=== PATIENT | male | born 1945 | race Caucasian/White ===

== ENCOUNTER → 2016-10-19 13:27 | Outpatient (CLI) | payer MEDICARE, OTHER ==
[2015-09-11 12:07] VITALS: BMI 30.4
[~2016-10-19 13:27] MED LIST: ASPIRIN325 MG PO; ELIQUIS2.5 MG PO; FISH OIL 1,0001 CA1 PO; HUMALOG 30100 UNITS/ SC; HUMALOG MI100 UNITS/; INSULIN PUMP HUMALOG; LANTUS INSULIN10 ML; LOPRESSOR25 MG PO; NIACIN100 MG PO; PERCOCET 10/3251 TA1 PO; PLAVIX75 MG PO; PRINZIDE 20-251 TA1 PO; TOPROL XL25 MG PO; ZOCOR20 MG PO
== END | disposition home or self-care (01) ==
LOC: D.RT 13:27
DX: J44.9 Chronic obstructive pulmonary disease, unspecified (principal)

== ENCOUNTER 2016-11-22 13:45 | Emergency (ER) | payer MEDICARE, OTHER ==
[2015-09-11 12:07] VITALS: BMI 30.4
[2016-11-22 14:29] LABS: BASOPHILS 0.1 % (0.0-2.0); EOSINOPHILS 0.6 % (0-7); HEMATOCRIT 39.8 % (42.0-54.0); HEMOGLOBIN 13.8 g/dL (13.5-17.5); IMMATURE GRANULOCYTES 0.1 % (0-5); LYMPHOCYTES 20.1 % (15-50); MCH 30.9 pg (26.0-34.0); MCHC 34.7 g/dL (31.0-37.0); MEAN PLATELET VOLUME 11.2 fL (7.4-10.4); MONOCYTES 6.4 % (2-11); NEUTROPHILS 72.7 % (40-80); PLATELET COUNT 115 10x3/uL (130-400); RBC 4.47 10x6/uL (4.20-6.10); RDW 13.3 % (11.5-14.5); WBC 7.2 10x3/uL (4.8-10.8)
[2016-11-22 14:43] LABS: ALBUMIN 4.3 g/dL (3.4-5.0); ALKALINE PHOSPHATASE 61 U/L (46-116); ALT (SGPT) 28 U/L (10-68); BILIRUBIN - TOTAL 0.67 mg/dL (0.2-1.3); CALC OSMOLALITY 289 mosm/kg (275-300); CALCIUM 9.3 mg/dL (8.5-10.1); CARBON DIOXIDE 26.6 mmol/L (21.0-32.0); CHLORIDE - SERUM 100 mmol/L (98-107); CREATININE - SERUM 1.8 mg/dL (0.6-1.3); POTASSIUM - SERUM 4.1 mmol/L (3.5-5.1); SODIUM 138 mmol/L (136-145); UREA NITROGEN 30 mg/dL (7-18); eGFR NON AFRICAN AMERICAN 40 mL/min (90-120)
[2016-11-22 14:46] LABS: GLUCOSE 241 mg/dL (74-106)
[2016-11-22 14:47] LABS: CREATINE KINASE 77 UL (21-232)
[2016-11-22 14:48] LABS: TROPONIN-I < 0.017 ng/mL (0.000-0.060)
[2016-11-22 16:43] LABS: APPEARANCE CLOUDY (CLEAR); BILIRUBIN NEGATIVE (NEGATIVE); COLOR YELLOW (YELLOW); GLUCOSE 250 mg/dL (NEGATIVE); KETONE NEGATIVE (NEGATIVE); LEUKOCYTE ESTERASE 1+ (NEGATIVE); NITRITE NEGATIVE (NEGATIVE); PROTEIN 3+ mg/dL (NEGATIVE); SPECIFIC GRAVITY 1.015 (1.005-1.020); UROBILINOGEN NORMAL (NORMAL)
[2016-11-22 16:48] LABS: BACTERIA MANY /hpf (NONE SEEN); RED CELLS - URINE NONE SEEN /hpf (0-5); WHITE CELLS - URINE 0-5 /hpf (0-5)
== END 2016-11-22 19:00 | disposition home or self-care (01) ==
LOC: D.ER 13:45
PROVIDERS: Emergency Medicine
DX: A08.4 Viral intestinal infection, unspecified (principal); E11.65 Type 2 diabetes mellitus with hyperglycemia; Z79.4 Long term (current) use of insulin

== ENCOUNTER → 2017-05-26 13:32 | Outpatient (CLI) | payer MEDICARE, OTHER ==
[2015-09-11 12:07] VITALS: BMI 30.4
== END | disposition home or self-care (01) ==
LOC: D.US 13:32
DX: M79.605 Pain in left leg (principal); M79.604 Pain in right leg; I73.9 Peripheral vascular disease, unspecified

== ENCOUNTER → 2017-06-15 13:22 | Outpatient (CLI) | payer MEDICARE, OTHER ==
[2015-09-11 12:07] VITALS: BMI 30.4
[~2017-06-15 13:22] MED LIST changes: +GEMFIBROZIL600 MG PO
== END | disposition home or self-care (01) ==
LOC: D.CT 13:22
DX: I73.9 Peripheral vascular disease, unspecified (principal)

== ENCOUNTER 2017-06-22 19:57 | Inpatient (IN) | payer MEDICARE, OTHER ==
--- NOTE | ~2017-06-22 | HEMODYNAMI ---
PATIENT:BRUNO KENDRICK MEDICAL RECORD: [id number] : 43 LOCATION:[facility] D2117 ADMISSION DATE: 06/22/17 Generatedon:06/23/201713:24 Patient name: BRUNO KENDRICK Patient #: [id number] SSN: : Date of study: 06/23/2017 Page: Of Hemodynamic Procedure Report Patient Data Patient Demographics Procedure consent was obtained First Name: BRUNO Gender: Male Last Name: AROLDO : 1945 Middle Initial: H Age: 72 year(s) Patient #: [id number] Race: Additional ID: [id number] Contact details [address]: [address] [place] [address] State: [place] City: [place] Zip code: [address] Past Medical History History of disease Date Diagnosis Comments CAD Peripheral vascular disease->Claudication Previous NH->ST elevation NH Hypertension Diabetes Allergies Allergen Reaction Date Comments Reported Sulfa drugs 02/27/2015 Admission Admission Data Admission Date: 06/22/2017 Admission Time: 22:25 Room #: D.2117 Procedure Procedure Types Cath Procedure Diagnostic Procedure LHC LHC w/Coronaries w/Grafts Miscellaneous Procedures Moderate Sedation up to 30 minutes Procedure Description Procedure Date Procedure Date: 06/23/2017 Procedure Start Time: 12:46 Procedure End Time: 13:22 Procedure Staff Name Function Desean Richard MD Performing Physician Adrien Rice RN Nurse Saulo Snow RT Monitor Asiya Gaffney RT Scrub Procedure Data Cath Procedure Fluoroscopy Diagnostic fluoroscopy Total fluoroscopy Time: 13 time: 13 min min Diagnostic fluoroscopy Total fluoroscopy dose: dose: 1251 mGy 1251 mGy Contrast Material Contrast Material Type Amount (ml) Isovue 300 104 Entry Location Entry Primary Successful Side Size Upsize Upsize Entry Closure Succes sful Closure Location (Fr) 1 (Fr) 2 (Fr) Remarks Device Remarks Femoral Right 5 Fr Exoseal artery Estimated blood loss: 10 ml Diagnostic catheters Device Type Used For End Catheter Placement Cordis 5Fr JL 4.0 Procedure Catheter (MP) Cordis 5Fr 3DRC Catheter Procedure (MP) Diagnostic Infinity 5Fr Procedure LCB catheter Diagnostic Infinity 5Fr Procedure MPA-2 catheter Cordis 5Fr Pigtail Procedure Catheter (MP) Procedure Complications No complications Procedure Medications Medication Administration Route Dosage Oxygen NC 2 l/min Lidocaine 2% added to field 20 Heparin Flush Bag added to field 2 bags (1000units/500ml NS) 0.9% NaCl I.V. 100 ml/hr Versed I.V. 0.5 mg Fentanyl I.V. 25 mcg Versed I.V. 0.5 mg Fentanyl I.V. 25 mcg Versed I.V. 0.5 mg Fentanyl I.V. 25 mcg Versed I.V. 0.5 mg Fentanyl I.V. 25 mcg Hemodynamics Rest Heart Rate: 73 (bpm) Pressure Samples Time Site Value (mmHg) Purpose Heart Use Rate(bpm) 12:50 AO 163/60(100) Snapshot 72 13:10 LV 179/11,16 Snapshot 71 13:11 AO 167/60(105) Pullback 72 13:11 LV 180/17,19 Pullback 72 Gradients Valve Time Site 1 Site 2 Mean SEP/DFP Peak To Heart Use (mmHg) (sec/min) Peak Rate (mmHg) (bpm) Aortic 13:11 LV AO 13 22 13 72 180/17,19 167/60(105) Calculations Valve P-P Mean Valve Index Valve Source Name Gradient Area Flow (cm2) Aortic 13 13 13 13 Snapshots Pre Cath Intra NCS Post Cath Vital Signs Time Heart Resp SPO2 etCO2 NIBP (mmHg) Rhythm Pain Sedation Rate (ipm) (%) (mmHg) Status Level (bpm) 12:34:05 71 22 95 32.4 186/63(118) NSR 0 (11) 10(A) , No pain 12:39:08 72 21 100 18.1 198/69(132) NSR 0 (11) 10(A) , No pain 12:44:14 73 25 98 13.5 191/73(128) NSR 0 (11) 10(A) , No pain 12:50:04 72 19 97 39.1 177/65(101) NSR 0 (11) 9(A) , No pain 12:55:01 71 18 99 23.3 180/64(115) NSR 0 (11) 9(A) , No pain 13:00:00 72 18 100 24.8 178/60(104) NSR 0 (11) 9(A) , No pain 13:05:01 72 18 99 18 187/57(132) NSR 0 (11) 9(A) , No pain 13:10:04 72 19 99 33.1 183/60(120) NSR 0 (11) 9(A) , No pain 13:15:07 72 17 100 38.4 197/72(139) NSR 0 (11) 10(A) , No pain Medications Time Medication Route Dose Verified Delivered Reason Notes Effe ctiveness by by 12:35:28 Oxygen NC 2 Desean Buffie used for l/min [place] Rice locomotive operator 12:39:39 Lidocaine 2% added 20ml Desean Desean for local to vial [facility] anesthetic field MD SRIVASTAVA 12:39:47 Heparin Flush added 2 Desean Desean used for Bag to bags [facility] procedure (1000units/500ml field MD SRIVASTAVA NS) 12:40:00 0.9% NaCl I.V. 100 Desean Buffie Per ml/hr St. Bruno Rice RN physician 12:42:51 Versed I.V. 0.5 Desean Buffie for mg Jose ManuelBruno Rice RN sedation 12:42:59 Fentanyl I.V. 25 Desean Buffie for mcg [place] Rice RN sedation 12:51:32 Versed I.V. 0.5 Desean Buffie for mg Jose Manuel Rice RN sedation 12:51:37 Fentanyl I.V. 25 Desean Buffie for mcg [place] Rice RN sedation 13:08:15 Versed I.V. 0.5 Desean Buffie for mg Jose Manuel Rice RN sedation 13:08:20 Fentanyl I.V. 25 Desean Buffie for mcg [place] Rice RN sedation 13:12:01 Versed I.V. 0.5 Desean Buffie for mg Jose Manuel Rice RN sedation 13:12:06 Fentanyl I.V. 25 Desean Buffie for mcg [place] Rice RN sedation Procedure Log Time Note 12:03:22 Saulo GUNDERSON(R) sent for patient. Start room use. 12:03:23 Time tracking: Regular hours 12:03:28 Plan of Care:Hemodynamics will remain stable., Cardiac rhythm will remain stable., Comfort level will be maintained., Respiratory function will remain adequate., Patient/ family verbilizes understanding of procedure., Procedure tolerated without complication., Recovers from procedure without complications.. 12:21:18 Patient received from PCU to CCL 1 Alert and oriented. Tansferred to table in Supine position. 12:21:19 Warm blankets applied, and sebastien hugger turned on for patient comfort. 12:21:20 Correct patient and procedure confirmed by team. 12:21:22 Signed procedure consent form obtained from patient. 12:21:22 ECG and BP/O2 sat monitors applied to patient. 12:31:55 Vital chart was started 12:32:34 Baseline sample Acquired. 12:33:05 Rhythm: sinus rhythm 12:33:08 Full Disclosure recording started 12:33:21 H&P Date Dictated: 06/22/2017 Within 30 days and on chart., H&P Addendum completed by physician on day of procedure. (MUST COMPLETE FOR ALL OUTPATIENTS). 12:33:21 Pre-procedure instructions explained to patient. 12:33:22 Pre-op teaching completed and patient verbalized understanding. 12:33:27 Family unavailable. 12:33:28 Patient NPO since Midnight. 12:33:30 Is the patient allergic to Iodine/contrast media? No. 12:33:32 Is patient on blood thinner?No 12:33:33 Patient diabetic? Yes. 12:33:34 If diabetic: On Metformin? No 12:33:37 Previous problem with sedation/anesthesia? No ? 12:33:37 Snore? Yes 12:33:38 Sleep apnea? No 12:33:39 Deviated septum? No 12:33:40 Opens mouth fully? Yes 12:33:41 Sticks out tongue? Yes 12:33:48 Airway obstruction? No ? 12:33:50 Dentures? No ? 12:33:53 Pre procedure: right dorsailis pedis pulse 1+ Palpable, but thready & weak; easily obliterated 12:33:56 Patient pain scale 0/10 ?. 12:34:00 IV patent on arrival in left forearm with 0.9% NaCl at [facility]. 12:34:02 Lab results completed and on chart. 12:34:43 Right groin area was prepped with chlora-prep and draped in sterile fashion 12:34:45 Alarms reviewed by R. N. 12:34:46 Sharps counted by scrub and verified by R.N. 12:35:28 Oxygen 2 l/min NC was administered by Adrien Rice RN; used for procedure; 12:37:47 --------ALL STOP TIME OUT------ 12:37:48 Final Timeout: patient, procedure, and site verified with staff and physician. All members of the team are in agreement. 12:37:50 Right groin site verified by team. 12:37:53 Physical assessment completed. ASA score P 3 - A patient with severe systemic disease as per Desean Richard MD. 12:37:57 Sedation plan: IV Moderate Sedation Versed, Fentanyl 12:39:39 Lidocaine 2% 20ml vial added to field was administered by Desean Richard MD; for local anesthetic; 12:39:47 Heparin Flush Bag (1000units/500ml NS) 2 bags added to field was administered by Desean Richard MD; used for procedure; 12:40:00 0.9% NaCl 100 ml/hr I.V. was administered by Adrien Rice RN; Per physician; 12:41:15 Use device set Femoral Dx 12:41:16 Tegaderm 4 x 4 opened to sterile field. 12:41:17 Acist Hand Control opened to sterile field. 12:41:17 Acist Manifold opened to sterile field. 12:41:18 Bag Decanter opened to sterile field. 12:41:19 Acist Syringe opened to sterile field. 12:41:19 Medline Cath Pack opened to sterile field. 12:41:20 Terumo 5Fr Robertson Sheath opened to sterile field. 12:41:20 St Romeo 260cm J .035 wire opened to sterile field. 12:41:21 Diagnostic Infinity 5Fr Multipack catheter opened to sterile field. 12:42:51 Versed 0.5 mg I.V. was administered by Adrien Rice RN; for sedation; 12:42:59 Fentanyl 25 mcg I.V. was administered by Adrien Rice RN; for sedation; 12:46:35 Procedure started. 12:46:45 Local anesthetic to right femoral artery with Lidocaine 2% by Desean Richard MD.INITIAL ACCESS ONLY 12:47:57 Zero performed for pressure channel P1 12:48:54 A 5 Fr sheath was inserted into the Right Femoral artery 12:49:28 A Cordis 5Fr JL 4.0 Catheter (MP) was advanced over the wire and used for Procedure. 12:50:25 LCA angiography performed. 12:50:48 Catheter exchanged over wire. 12:50:53 A Cordis 5Fr 3DRC Catheter (MP) was advanced over the wire and used for Procedure. 12:51:32 Versed 0.5 mg I.V. was administered by Adrien Rice RN; for sedation; 12:51:37 Fentanyl 25 mcg I.V. was administered by Adrien Rice RN; for sedation; 12:52:26 RCA angiography performed. 12:55:52 Terumo ANGLE 260cm glide wire opened to sterile field. 12:56:54 Glidewire used to advance catheter. 12:59:38 Unable to advance catheter into the left subclavian. Wire removed. Catheter exchange over the J wire. 12:59:44 A Diagnostic Infinity 5Fr LCB catheter was advanced over the wire and used for Procedure. 13:02:29 SVG to Diag angiography performed. 13:02:32 SVG to Circ angiography performed. 13:02:50 Catheter exchanged over wire. 13:04:18 A Diagnostic Infinity 5Fr MPA-2 catheter was advanced over the wire and used for Procedure. 13:04:56 Glidewire readvanced in attempt to wire the left subclavian. 13:08:15 Versed 0.5 mg I.V. was administered by Adrien Rice RN; for sedation; 13:08:20 Fentanyl 25 mcg I.V. was administered by Adrien Rice RN; for sedation; 13:08:36 PERRY to LAD angiography performed. 13:09:19 Catheter exchanged over wire. 13:09:29 A Cordis 5Fr Pigtail Catheter (MP) was advanced over the wire and used for Procedure. 13:11:53 LV angiography performed. 13:12:01 Versed 0.5 mg I.V. was administered by Adrien Rice RN; for sedation; 13:12:06 Fentanyl 25 mcg I.V. was administered by Adrien Rice RN; for sedation; 13:12:12 LV gram done using CARDOZO 13:12:29 EF : 55 % 13:12:33 LV hemodynamics recorded. 13:12:44 Injector settings: Ml/sec: 10, Volume: 20, 13:12:50 Catheter exchanged over wire. 13:13:07 Cordis 5Fr Exoseal opened to sterile field. 13:13:16 Sheath removed intact; hemostasis achieved with Exoseal to the Right Femoral artery. 13:13:19 Procedure ended.(Physican Out) 13:13:33 Fluoroscopy time 13.00 minutes. 13:13:40 Fluoroscopy dose: 1251 mGy 13:13:40 Flurop Dose total: 1251 13:13:51 Contrast amount:Isovue 300 104ml. 13:13:53 Sharps counted by scrub and verified by R.N. 13:13:58 Insertion/operative site no bleeding no hematoma. 13:14:00 Post-op/insertion site Right Femoral artery dressed using a 4 x 4 and Tegaderm. 13:14:02 Post Procedure Pulses reassessed and unchanged 13:14:50 Post-procedure physical assessment completed. ASA score P 3 - A patient with severe systemic disease as per Desean Richard MD. 13:14:54 Post procedure rhythm: unchanged. 13:16:13 Estimated blood loss: 10 ml 13:16:16 Post procedure instruction explained to patient.Patient verbalizes understanding. 13:16:16 Patient needs reinforcement of post procedure teaching. 13:16:32 Procedure type changed to Cath procedure, Diagnostic procedure, LHC, LHC w/Coronaries w/Grafts, Miscellaneous Procedures, Moderate Sedation up to 30 minutes 13:17:09 Procedure and supply charges have been captured, reviewed, submitted and are correct. 13:17:12 Procedure Complication : No complications 13:17:14 Vital chart was stopped 13:17:15 See physician's report for complete and final results. 13:17:16 Report given to PCU. 13:17:21 Patient transfered to PCU with Bed. 13:22:41 Procedure ended. 13:22:41 Full Disclosure recording stopped 13:22:45 End room use (Document Last) Device Usage Item Name Manufacture Quantity Catalog Hospital Part Current Minimal Lo t# / Number Charge Number Stock Stock Serial# Code Tegaderm 4 3M 1 [id number] 5 x 4 Acist Hand Acist 1 44848 257606 998605 852769 5 Control Medical Systems Inc Acist Acist 1 70466 639537 863790 613596 5 Manifold Medical [employer] Inc Bag Microtek 1 2002S 651898 61608 090404 5 Decanter Medical Inc. Acist Acist 1 61345 322701 667295 437338 20 Syringe Medical Systems Inc Medline Cardinal 1 [id number] 720533 41025 919460 5 Cath Pack Health Terumo 5Fr Terumo 1 [id number] 278737 839774 491449 [address] St Romeo 1 166645 682626 166215 782053 30 260cm J .035 wire Diagnostic Cardinal 1 [id number] 708391 52166 734829 30 CardKillity Health 5Fr Multipack catheter Cordis 5Fr Cardinal 1 844010 5 JL 4.0 Health Catheter (MP) Cordis 5Fr Cardinal 1 220049 5 3DRC Health Catheter (MP) Terumo Terumo 1 [id number] 469314 941039 080945 5 ANGLE 260cm glide wire Diagnostic Cardinal 1 [id number] 247401 385607 593199 5 LAVEGO 5Fr LCB catheter Diagnostic Cardinal 1 [id number] 441857 499088 928661 5 LuckyCal Health 5Fr MPA-2 catheter Cordis 5Fr Cardinal 1 802167 5 Pigtail Health Catheter (MP) Cordis 5Fr Cardinal 1 EX500 614585 192114 271198 10 SLI Systems Signature Audit Quanah Stage Time Signature Unsigned Intra-Procedure 06/23/2017 Saulo Snow 1:24:04 PM RT(R) Signatures Monitor : Saulo Snow RT Signature : Date : Time : [facility] [address] [facility] [place] [address]
[~2017-06-22 19:57] MED LIST changes: -GEMFIBROZIL600 MG PO
--- NOTE | 2017-06-22 22:30 | NUR ---
ARRIVED TO FLOOR VIA EMS FROM [facility]. ORIENTED TO UNIT AND PLACED ON TELEMETRY 81 SR WITH PVCS. DONAHUE TO GRAVITY AND RIGHT AC INFUSING NS @ 75. CALL LIGHT IN REACH. WILL CONTINUE TO MONITOR. SEE NURSE ASSESSMENT.
[2017-06-22 23:03] VITALS: BP 155/49; BMI 30.2
[2017-06-23] VITALS: BP 155/49
--- NOTE | 2017-06-23 02:25 | NUR ---
LYING IN BED, CALL LIGHT IN REACH. WILL CONTINUE WITH PLAN OF CARE.
[2017-06-23 04:00] VITALS: BP 161/47
[2017-06-23] MEDS ORDERED: GEMFIBROZIL600 MG PO (04:16)
[2017-06-23 06:41] LABS: ANION GAP 13.7 mmol/L (8-16); CALCIUM 9.2 mg/dL (8.5-10.1); CARBON DIOXIDE 25.6 mmol/L (21.0-32.0); CREATININE - SERUM 2.2 mg/dL (0.6-1.3); POTASSIUM - SERUM 4.3 mmol/L (3.5-5.1)
--- NOTE | 2017-06-23 06:41 | NUR ---
2O GAUGE X 1 STICK TO LEFT FOREARM. 2 IVS WERE REMOVED BY PT LAST NIGHT DURING A EPISODE.
[2017-06-23 06:44] LABS: TROPONIN-I 4.481 ng/mL (0.000-0.060)
--- NOTE | 2017-06-23 07:23 | NUR ---
ASSESSMENT DONE. DENIES NEEDS
[2017-06-23 08:03] VITALS: BP 178/64
[2017-06-23 08:03] LABS: BASOPHILS 0.2 % (0-2); EOSINOPHILS 0.7 % (0-7); HEMATOCRIT 30.8 % (42.0-54.0); HEMOGLOBIN 10.4 g/dL (13.5-17.5); LYMPHOCYTES 26.1 % (15-50); MCH 31.2 pg (26.0-34.0); MCHC 33.8 g/dL (31.0-37.0); MCV 92.5 fL (80.0-100.0); MEAN PLATELET VOLUME 11.1 fL (7.4-10.4); MONOCYTES 10.6 % (2-11); NEUTROPHILS 62.4 % (40-80); PLATELET COUNT 121 10x3/uL (130-400); RBC 3.33 10x6/uL (4.20-6.10); RDW 13.7 % (11.5-14.5); WBC 5.7 10x3/uL (4.8-10.8)
--- NOTE | 2017-06-23 09:51 | NUR ---
RESTS WITH EYES CLOSED. IV PATENT. CALL LIGHT IN REACH. WILL MONITOR NEEDS.
[2017-06-23 09:55] VITALS: BMI 30.1
--- NOTE | 2017-06-23 12:16 | NUR ---
TO PLANNING RN PER BED
--- NOTE | 2017-06-23 13:20 | NUR ---
RETURN FROM FISH CUTTING MACHINE OPERATOR PER BED. RT DESIREE CHRIS C/D/I. PULSE PALP.
--- NOTE | 2017-06-23 17:29 | NUR ---
WITHOUT CHANGES OR DISTRESS NOTED AT THIS TIME. DENIES NEEDS
[2017-06-23 20:00] VITALS: BP 122/53
--- NOTE | 2017-06-23 22:03 | NUR ---
INITIAL ROUNDS COMPELTED AT 1915 HRS. PT RESTING WITH EYES CLOSED. RESP EVEN AND REGULAR. ASSESSMENT COMPLETED AT 1950 HRE. VSS. SR PER CM HR 85. R GROIN CLEAN, DRY AND INTACT WITHOUT BRUISING, SWELLING OR BLEEDING. PALPABLE PEDAL PULSES. IV TO LFA SL. LUNGS ESSENTIALLY CTA. 1ST AND 2ND TOE OF R FOOT AMPUTATED. SORE NOTED TO 3RD TOE OF R FOOT. SORE NOTED TO 1ST AND 5TH DIGIT OF L FOOT. DONAHUE DRAINING YELLOW URINE. PT ALERT. KNOWS JEANINE IS PRESIDENT BUT THINKS IT IS 1970. PT REQUESTING FOELY OUT. BLADDER TRAINING INITIATED PT HAS DC ORDERS FOR AM. 1999 FSBS 312. 8 UNITS HUMALOG GIVEN SUB-Q TO UPPER L ARM PER S/S. PT PULLED IV OUT WITH CATHETER INTACT AT 2150 HRS. REFUSES NEW IV. PT THEN INSISITS DONAHUE TO BE REMOVED. INFORMED PT BLADDER TRAINING IN PROGRESS AND WHY. WILL CONTINIUE TO MONITOR. SR UP X2, CALL LIGHT WITHIN REACH AND BED ALARM ON.
[2017-06-24] VITALS: BP 155/60
--- NOTE | 2017-06-24 00:31 | NUR ---
FSBS 283. 6 UNITS HUMALOG GIVEN SUB-Q TO UPPER L ARM. R GROIN CLEAN, DRY AND INTACT. NO CHANGES NOTED. ROWAN SPANGLER'Harley. PT TOLERATED WELL. INFORMED PT HE NEEDS TO URINATE WITHIN THE NEXT 8 HRS. PT STATED UNDERSTANDING. WILL CONTINUE TO MONITOR.
--- NOTE | 2017-06-24 02:33 | NUR ---
PT RESTINH WITH EYES CLOSED. RESP EVEN AND REGULAR. SR UP X2, CALL LIGHT WITHIN REACH AND BED ALARM ON.
--- NOTE | 2017-06-24 04:21 | NUR ---
FSBS 349. 8 UNITS HUMALOG GIVEN SUB-Q TO UPPER R ARM. NO CHANGES TO R GROIN NOTED. FEET WARM TO TOUCH WITH PALPABLE PEDAL PULSES. WILL CONTINUE TO MONITOR. BED ALARM ON.
--- NOTE | 2017-06-24 04:23 | NUR ---
PT VOIDED X1 AFTER DONAHUE REMOVAL. WILL CONTINUE TO MONITOR.
--- NOTE | 2017-06-24 06:24 | NUR ---
VSS THROUGHU NGIHT. CONTINUES TO NOT KNOW YEAR. STATES NEEDS TO GO TO THE BATHROOM THEN URINATES IN THE BED. SR PER CM HR IN 80'S. BED ALARM ON. WILL CONTINUE TO MONITOR.
--- NOTE | 2017-06-24 07:30 | NUR ---
RECEIVED PT IN BED EYES CLOSED RESP UNLABORED NAD NOTED
[2017-06-24 08:00] VITALS: BP 187/58
--- NOTE | 2017-06-24 08:06 | NUR ---
FSBS 343 HUMALOG 8 UNITS GIVEN SQ LT ARM
[2017-06-24 11:24] VITALS: BP 146/51
--- NOTE | 2017-06-24 11:49 | NUR ---
FSBS 403 HUMALOG 12 UNITS GIVEN SQ RT ARM SPOKE WITH DR BLEDSOE ABOUT 403 FSBS HE STATED THAT WAS FINE COVER ORDERED AND IT IS OK FOR PT TO BE DISCHARGED
[2017-06-24] MEDS ORDERED: HUMALOG 30100 UNITS/ SC (13:01)
--- NOTE | 2017-06-24 14:00 | NUR ---
REVIEWED DISCHARGE INSTRUCTIONS WITH PT AND FAMILY MEMBER BOTH STATES UNDERSTANDING COPY GIVEN DISCHARGED PT HOME IN STABLE CONDITION WITH ALL PERSONAL BELONGINGS LEFT VIA W/C
--- NOTE | 2017-06-26 11:08 | OP ---
PATIENT NAME: BRUNO KENDRICK MEDICAL RECORD: [id number] :43 LOCATION:D. D.2116 ADMISSION DATE:06/23/17 SURGEON: JOSE BLEDSOE MD DATE OF OPERATION: PROCEDURE: Left heart catheterization, selective coronary angiography, right femoral approach. CATHETERS: A 5-[place]izen Of [place] sheath, 5/4 left and right Cass, 5/4 pig. The procedure was tolerated and the patient was returned to the ni, sheath removed and ExoSeal device placed. FINDINGS: Left ventriculography in 30-degree CARDOZO view shows global hypokinesis, reduced EF 25% to 30%. CORONARY ANATOMY: LEFT MAIN: Left main fills for a short period of time and is totally occluded. LAD: LAD and circumflex with only small septal branches filling. RIGHT CORONARY ARTERY: Right coronary artery is totally occluded and fills via left to right collaterals. BYPASS GRAFTS: PERRY to LAD is patent throughout its course. Fills the LAD as well as the right via collaterals. Saphenous vein graft, circumflex is widely patent throughout its course and again it fills the right via collaterals. Saphenous vein graft to diagonal is widely patent. IMPRESSION: Cardiomyopathy, patent grafts, totally occluded right, both left to right collaterals, for medical management. TRANSINT:[id number] Voice Confirmation ID: [id number] DOCUMENT ID: [id number] JOSE BLEDSOE MD at 1108 CC: [id number] DICTATION DATE: 06/23/17 1325 INHALATION THERAPY TEACHER: 06/23/17 1435 DIS IN 06/24/17 [id number] [place] [address]
== END 2017-06-24 14:00 | disposition home or self-care (01) | DRG 281 ==
LOC: D.M2 19:57 → OBSVTIME 22:26 → D.M2 06-23 14:59
PROVIDERS: Internal Medicine Interventional Cardiology; ADMIT Internal Medicine Cardiovascular Disease
PROC: B2151ZZ Fluoroscopy of Left Heart using Low Osmolar Contrast (ICD-10-PCS; 2017-06-23)
PROC: 4A023N7 Measurement of Cardiac Sampling and Pressure, Left Heart, Percutaneous Approach (ICD-10-PCS; 2017-06-23)
PROC: B2111ZZ Fluoroscopy of Multiple Coronary Arteries using Low Osmolar Contrast (ICD-10-PCS; principal; 2017-06-23 09:30)
DX: I21.4 Non-ST elevation (NSTEMI) myocardial infarction (principal); I42.9 Cardiomyopathy, unspecified; I25.10 Atherosclerotic heart disease of native coronary artery without angina pectoris; I10 Essential (primary) hypertension; E11.9 Type 2 diabetes mellitus without complications; N28.9 Disorder of kidney and ureter, unspecified; Z95.5 Presence of coronary angioplasty implant and graft; Z95.1 Presence of aortocoronary bypass graft